=== PATIENT | male | born 1960 | race African-American/Black ===

== ENCOUNTER 2016-05-27 02:59 | Emergency (ER) | payer MEDICAID ==
[~2016-05-27] VITALS: Ht 175.3 cm; Wt 80.0 kg
[~2016-05-27 02:59] MED LIST: AMOX500T PO; DICL50 PO
[2016-05-27 03:04] VITALS: BP 166/86; PULSE 92; RESP 19; TEMP 99.8; O2SAT 99
[2016-05-27] MEDS ORDERED: SODIUM CHLOR 0.9% 1000 ML INJ 1,000 ML IV ONE (03:06)
[2016-05-27 03:08] VITALS: O2SAT 99
[2016-05-27] MEDS ORDERED: diphenhydrAMINE HCL 50 MG/ML VIAL IVP ONE (03:15)
[2016-05-27] MEDS ORDERED: SODIUM CHLORIDE 0.9% FLUSH 5 ML FLUSH IVF PRN (03:15)
[2016-05-27] MEDS ORDERED: PROCHLORPERAZINE INJ 10 MG/2 ML VIAL IVP ONE (03:15)
[2016-05-27 03:24] LABS: BASOPHIL # 0.1 TH/MM3 (0-0.2); BASOPHIL % 0.7 % (0.0-2.0); EOSINOPHIL % 0.3 % (0.0-4.0); HEMO FLAGS DIFF FINAL; LYMPH % 14.9 % (9.0-44.0); LYMPHOCYTE # 1.7 TH/MM3 (1.0-4.8); MEAN CELL VOLUME 91.3 FL (80.0-100.0); MEAN CORPUSCULAR HEMOGLOBIN 31.6 PG (27.0-34.0); MEAN CORPUSCULAR HGB CONC 34.6 % (32.0-36.0); MONO % 6.4 % (0.0-8.0); NEUT % 77.7 % (16.0-70.0); PLATELET COUNT 294 TH/MM3 (150-450); RED BLOOD COUNT 4.49 MIL/MM3 (4.50-5.90); RED CELL DISTRIBUTION WIDTH 13.9 % (11.6-17.2); WHITE BLOOD COUNT 11.6 TH/MM3 (4.0-11.0)
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
[2016-05-27 03:48] LABS: ANION GAP 9 MEQ/L (5-15); BICARBONATE 26.2 MEQ/L (21.0-32.0); BLOOD UREA NITROGEN 13 MG/DL (7-18); CHLORIDE 102 MEQ/L (98-107); GLOMERULAR FILTRATION RATE 85 ML/MIN (>89); POTASSIUM 4.3 MEQ/L (3.5-5.1); SODIUM (NA) 137 MEQ/L (136-145)
--- NOTE | 2016-05-27 04:42 | RADRPT ---
EXAM DATE/TIME: 05/27/2016 04:06 [facility] COMPARISON: CT BRAIN W/O CONTRAST, May 18, 2009, 13:33. INDICATIONS : Cephalgia. RADIATION DOSE: 56.35 CTDIvol (mGy) MEDICAL HISTORY : Substance abuse. SURGICAL HISTORY : None. ENCOUNTER: Initial ACUITY: 1 month PAIN SCALE: 10/10 LOCATION: Right cranial TECHNIQUE: Multiple contiguous axial images were obtained of the head. Using automated exposure control and adj ustment of the mA and/or kV according to patient size, radiation dose was kept as low as reasonably a chievable to obtain optimal diagnostic quality images. FINDINGS: CEREBRUM: The ventricles are normal for age. No evidence of midline shift, mass lesion, hemorrhage or acute in farction. No extra-axial fluid collections are seen. POSTERIOR FOSSA: The cerebellum and brainstem are intact. The 4th ventricle is midline. The cerebellopontine angle i s unremarkable. EXTRACRANIAL: The visualized portion of the orbits is intact. SKULL: The calvaria is intact. No evidence of skull fracture. CONCLUSION: Negative noncontrast CT brain. Timmy Flynn MD on May 27, 2016 at 4:39 Board Certified Radiologist. This report was verified electronically.
[2016-05-27] MEDS ORDERED: HYDR-3534 PO (04:53)
[2016-05-27] MEDS ORDERED: PENI500T PO (04:53)
[2016-05-27] MEDS ORDERED: PENICILLIN V POTASSIUM 500 MG TAB PO ONE (05:15)
[2016-05-27 06:17] VITALS: BP 129/71; PULSE 79; RESP 15; O2SAT 100
--- NOTE | 2016-05-27 23:27 | EKG ---
Date Performed: 05/27/2016 Time Performed: 03:46:31 PTAGE: 55 years EKG: Sinus rhythm NORMAL ECG NO PREVIOUS TRACING DOCTOR: Quinten Aleman Interpretating Date/Time 05/27/2016 23:26:39
== END 2016-05-27 06:25 | disposition home or self-care (01) ==
LOC: NEPE 02:59
DX: R51 Headache (principal); K02.9 Dental caries, unspecified; F17.200 Nicotine dependence, unspecified, uncomplicated
CPT/HCPCS: 70450; 80048; 85025; 85652; 86140; 93005; 96374; 96375; 99284; J0780; J1200; J7030